=== PATIENT | female | born 1990 | race African-American/Black ===

== ENCOUNTER 2016-09-07 20:33 | Emergency (ER) | payer SELFPAY ==
[~2016-09-07] VITALS: Ht 162.6 cm; Wt 91.0 kg
[2016-09-07 21:40] VITALS: BP 117/70
== END 2016-09-08 07:25 | disposition left against medical advice (07) ==
LOC: ER 20:33
DX: M25.571 Pain in right ankle and joints of right foot (principal); F12.10 Cannabis abuse, uncomplicated; M79.89 Other specified soft tissue disorders

== ENCOUNTER 2018-09-11 21:49 | Emergency (ER) | payer OTHER ==
[~2018-09-11] VITALS: Ht 30.5 cm; Wt 0.5 kg
[2018-09-11] MEDS ORDERED: SODIUM CHLORIDE 0.9% 1,000 ML IV ONE (22:45)
[2018-09-11 22:58] LABS: UCG SCREEN NEGATIVE
[2018-09-11] MEDS ORDERED: TETRACAINE 0.5% OPHTH DROPS 4ML BOTHEYE NR (23:00)
[2018-09-11] MEDS ORDERED: LORAZEPAM 2MG/ML CPJ IM PRN (23:15)
[2018-09-11] MEDS ORDERED: LORAZEPAM 2MG/ML CPJ ONE (23:16)
[2018-09-11 23:31] LABS: *BARBITURATES SCREEN URINE NEGATIVE (NEGATIVE)
[2018-09-11 23:32] LABS: *AMPHETAMINES SCREEN URINE NEGATIVE (NEGATIVE); *COCAINE SCREEN URINE NEGATIVE (NEGATIVE); METHADONE URINE SCREEN NEGATIVE (NEGATIVE); OPIATES URINE SCREEN NEGATIVE (NEGATIVE)
[2018-09-11 23:33] LABS: PHENCYCLIDINE URINE SCREEN NEGATIVE (NEGATIVE)
[2018-09-11 23:44] LABS: *BENZODIAZEPINES SCREEN URINE PRESUMTIVE POSITIVE (NEGATIVE); CANNABINOID URINE SCREEN PRESUMTIVE POSITIVE (NEGATIVE)
[2018-09-12] MEDS ORDERED: LORAZEPAM 2MG/ML CPJ IM PRN (00:15)
[2018-09-12] MEDS ORDERED: HALOPERIDOL LACTATE 5MG/ML VIAL IM ONE (02:30)
[2018-09-12] MEDS ORDERED: OLANZAPINE 10 MG/VIAL IM ONE (03:15)
[2018-09-12 06:00] VITALS: BP 130/84
== END 2018-09-12 07:13 | disposition home or self-care (01) ==
LOC: ER 21:49
DX: T51.0X1A Toxic effect of ethanol, accidental (unintentional), initial encounter (principal); Y92.89 Other specified places as the place of occurrence of the external cause; F12.929 Cannabis use, unspecified with intoxication, unspecified; R45.1 Restlessness and agitation
CPT/HCPCS: 36415; 80305; 80320; 81025; 96372; 99283; J2060; J3490; J7030; J1630; G0480